=== PATIENT | female | born 1950 | race Caucasian/White ===

== ENCOUNTER 2017-04-21 22:43 | Inpatient (IN) | payer MEDICARE, BC ==
[2017-04-21] MEDS ORDERED: HYDROmorphone 1 MG/ML Syringe IVPUSH ONE (23:09)
[2017-04-21] MEDS ORDERED: LORazepam 2 MG/ML MDV IVPUSH ONE (23:13)
[2017-04-21] MEDS ORDERED: Ondansetron 4 MG/2 ML SDV IVPUSH ONE (23:13)
[2017-04-21] MEDS ORDERED: Sodium Chloride 0.9% 1,000 ML IV SCH (23:15)
--- NOTE | 2017-04-21 23:43 | EDM.PDOC ---
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 She had a meal of hamburgers, beans, salad at 1730 today then about 2 and half hours later had intense abdominal pain that radiates to the shoulders and upper back. denies any recent injuries or surgeries lives in [place], here on weekends for the summer. Onset: Sudden Onset Date: 04/21/17 Onset Time: 20:00 Duration: Hour(s):, Constant, Getting Worse Location: Reports: Abdomen, Back Quality: Reports: Sharp, Stabbing Severity: Severe Improves with: Reports: None Worsens with: Reports: None Associated Symptoms: Reports: Nausea/Vomiting Treatments BOTTOM SPRAYER: Reports: Aspirin (4 baby asa) Right Upper Abdomen Pain Score (Numeric/FACES): 10 - Related Data Allergies Allergy/AdvReac Type Severity Reaction Status Date / Time No Known Allergies Allergy Verified 04/21/17 22:59 Home Meds: Home Meds NK [No Known Home Meds] 04/21/17 [History] Past Medical History Cardiovascular History: Reports: High Cholesterol - Infectious Disease History Infectious Disease History: Reports: Chicken Pox - Past Surgical History Musculoskeletal Surgical History: Reports: Arthroscopic Knee, Arthroscopic Procedure Social & Family History - Tobacco Use Smoking Status *Q: Never Smoker - Recreational Drug Use Recreational Drug Use: No - Living Situation & Occupation Living situation: Reports: Occupation: Retired (lives with who has brain cancer, comes to [place] on weekends for rest from caring for all week.) ED ROS GENERAL - Review of Systems Review Of Systems: See Below Constitutional: Reports: Other (acute distress from abdominal pain) HEENT: Reports: No Symptoms Respiratory: Reports: No Symptoms Cardiovascular: Reports: No Symptoms Endocrine: Reports: No Symptoms GI/Abdominal: Reports: Abdominal Pain, Distension, Nausea, Vomiting : Reports: No Symptoms Musculoskeletal: Reports: Shoulder Pain, Back Pain Skin: Reports: No Symptoms Neurological: Reports: No Symptoms Psychiatric: Reports: Anxiety Hematologic/Lymphatic: Reports: No Symptoms Immunologic: Reports: No Symptoms ED EXAM, GI/ABD - Physical Exam Exam: See Below Exam Limited By: Other (acute pain) General Appearance: Severe Distress, Obese, Active Emesis Eyes: Bilateral: Normal Appearance Ears: Normal External Exam, Normal Canal, Hearing Grossly Normal, Normal TMs Nose: Normal Inspection, Normal Mucosa, No Blood Throat/Mouth: Normal Inspection, Normal Lips, Normal Teeth, Normal Gums, Normal Oropharynx, Normal Voice, No Airway Compromise Head: Atraumatic, Normocephalic Neck: Normal Inspection, Supple, Non-Tender, Full Range of Motion Respiratory/Chest: No Respiratory Distress Cardiovascular: Normal Peripheral Pulses, Regular Rate, Rhythm, No Edema, No Gallop, No JVD, No Murmur, No Rub GI/Abdominal: Hypoactive Bowel Sounds, Tenderness (right upper abdominal pain ) , Distention (Female) Exam: Deferred Rectal (Female) Exam: Deferred Back Exam: Normal Inspection, Muscle Spasm Extremities: Normal Inspection, Normal Range of Motion, Non-Tender, No Pedal Edema, Normal Capillary Refill Neurological: Alert, Oriented, No Motor/Sensory Deficits Psychiatric: Normal Affect, Normal Mood, Anxious Skin Exam: Warm, Dry, Intact, Normal Color, Erythema Lymphatic: No Adenopathy Course - Vital Signs Last Recorded V/S: Last Vital Signs Temp 36.9 C 04/21/17 22:53 Pulse 84 04/21/17 23:46 Resp 14 04/21/17 23:46 BP 156/81 H 04/21/17 23:46 Pulse Ox 98 04/21/17 23:46 - Orders/Labs/Meds Orders: Active Orders 24 hr Category Date Time Status Abdomen Pelvis wo Cont [CT] Stat Exams 04/21/17 23:11 Taken UA W/MICROSCOPIC [URIN] Stat Lab 04/21/17 23:49 Uncollected HYDROmorphone [Dilaudid] Med 04/22/17 00:14 Once 1 mg IVPUSH ONETIME ONE Sodium Chloride 0.9% [Normal Saline] 1,000 ml Med 04/21/17 23:15 Active IV ASDIRECTED Medication Orders Sodium Chloride (Normal Saline) 1,000 mls @ 999 mls/hr IV ASDIRECTED CONNOR Last Admin: 04/21/17 23:30 Dose: 999 mls/hr Labs: Laboratory Tests 04/21/17 04/21/17 Range/Units 23:38 23:38 WBC 9.4 (4.5-11.0) K/uL RBC 5.06 (3.30-5.50) M/uL Hgb 14.6 (12.0-15.0) g/dL Hct 42.2 (36.0-48.0) % MCV 83 (80-98) fL MCH 29 (27-31) pg MCHC 35 (32-36) % Plt Count 241 (150-400) K/uL Neut % (Auto) 76 H (36-66) % Lymph % (Auto) 14 L (24-44) % Delta % (Auto) 7 H (2-6) % Eos % (Auto) 2 (2-4) % Baso % (Auto) 1 (0-1) % Sodium 139 L (140-148) mmol/L Potassium 3.4 L (3.6-5.2) mmol/L Chloride 103 (100-108) mmol/L Carbon Dioxide 22 (21-32) mmol/L Anion Gap 17.4 H (5.0-14.0) mmol/L BUN 10 (7-18) mg/dL Creatinine 0.8 (0.6-1.0) mg/dL Est Cr Clr Drug Dosing 58.93 mL/min Estimated GFR (MDRD) > 60 (>60) Glucose 124 H (74-106) mg/dL Calcium 8.8 (8.5-10.1) mg/dL Magnesium 1.7 L (1.8-2.4) mg/dL Total Bilirubin 0.3 (0.2-1.0) mg/dL AST 25 (15-37) U/L ALT 46 (12-78) U/L Alkaline Phosphatase 92 (46-116) U/L Troponin I < 0.017 (0.000-0.056) ng/mL Total Protein 7.4 (6.4-8.2) g/dL Albumin 3.3 L (3.4-5.0) g/dL Globulin 4.1 H (2.3-3.5) g/dL Albumin/Globulin Ratio 0.8 L (1.2-2.2) Amylase 56 (25-115) U/L Lipase 213 (73-393) U/L Meds: Medications Generic Name Dose Route Start Last Admin Trade Name Freq PRN Reason Stop Dose Admin Sodium Chloride 1,000 mls @ 999 mls/hr 04/21/17 23:15 04/21/17 23:30 Normal Saline IV 999 mls/hr ASDIRECTED CONNOR Administration Discontinued Medications Generic Name Dose Route Start Last Admin Trade Name Bibiana PRN Reason Stop Dose Admin Hydromorphone HCl 1 mg 04/21/17 23:09 04/21/17 23:15 Dilaudid IVPUSH 04/21/17 23:10 1 mg ONETIME ONE Administration Lorazepam 1 mg 04/21/17 23:13 04/21/17 23:31 Ativan IVPUSH 04/21/17 23:14 1 mg ONETIME ONE Administration Ondansetron HCl 4 mg 04/21/17 23:13 04/21/17 23:35 Zofran IVPUSH 04/21/17 23:14 4 mg ONETIME ONE Administration - Re-Assessments/Exams Free Text/Narrative Re-Assessment/Exam: 04/21/17 23:47 given Dilaudid 1 mg IV stat in ER, then order for IV Ativan 1 mg, IV Zofran 4mg , 1 liter of fluids labs; CBC, CMP, TROPONIN, AMYLASE, LIPASE, URINE XRAY; ABD-PELVIS CT SCAN 04/22/17 00:15 CT report show stone in cystic duct; Acute Keli called Dr. Osborn, discussed CT report -advise to either admit for surgery in am or discharge to home with medication and follow up in clinic time 2400: Mrs. Carter request admission. plan: will admit to service of Dr. Osborn, see standing orders for Surgery Admission. Departure - Departure Time of Disposition: 00:19 Disposition: Admitted As Inpatient 65 Condition: Fair Clinical Impression: Cholecystitis - Discharge Information Forms: ED Department Discharge - My Orders Last 24 Hours: My Active Orders 04/21/17 23:11 Abdomen Pelvis wo Cont [CT] Stat 04/21/17 23:15 Sodium Chloride 0.9% [Normal Saline] 1,000 ml IV ASDIRECTED 04/21/17 23:49 UA W/MICROSCOPIC [URIN] Stat 04/22/17 00:14 HYDROmorphone [Dilaudid] 1 mg IVPUSH ONETIME ONE - Assessment/Plan Last 24 Hours: My Active Orders 04/21/17 23:11 Abdomen Pelvis wo Cont [CT] Stat 04/21/17 23:15 Sodium Chloride 0.9% [Normal Saline] 1,000 ml IV ASDIRECTED 04/21/17 23:49 UA W/MICROSCOPIC [URIN] Stat 04/22/17 00:14 HYDROmorphone [Dilaudid] 1 mg IVPUSH ONETIME ONE
[2017-04-22] MEDS ORDERED: HYDROmorphone 1 MG/ML Syringe IVPUSH ONE (00:14)
[2017-04-22] MEDS ORDERED: fentaNYL 100 MCG/2 ML SDV IVPUSH PRN (00:47)
[2017-04-22] MEDS ORDERED: diphenhydrAMINE 50 MG/ML SDV IVPUSH PRN (00:47)
[2017-04-22] MEDS ORDERED: Ondansetron 4 MG/2 ML SDV IVPUSH PRN (00:47)
[2017-04-22] MEDS ORDERED: Morphine 2 MG/ML Syringe IVPUSH PRN (00:47)
[2017-04-22] MEDS ORDERED: Scopolamine 1.5 MG Transdermal Patch TOP ONE (00:47)
[2017-04-22] MEDS ORDERED: Scopolamine 1.5 MG Transdermal Patch TOP PRN (01:00)
[2017-04-22] MEDS ORDERED: Promethazine 12.5 MG in Sodium Chloride 0.9% 50 ML IV PRN (01:02)
[2017-04-22] MEDS ORDERED: diphenhydrAMINE 25 MG Cap PO PRN (01:05)
[2017-04-22] MEDS: Sodium Chloride 0.9% 1,000 ML IV SCH ×4 (01:18→18:26)
[2017-04-22] MEDS ORDERED: Nicotine 14 MG/24 Hr Patch TRDERM PRN (07:26)
[2017-04-22] MEDS: VERIFY SCOP PATCH TOP SCH (08:20)
[2017-04-22] MEDS ORDERED: Nicotine 14 MG/24 Hr Patch TRDERM SCH (09:00)
[2017-04-22] MEDS ORDERED: Ondansetron 4 MG/2 ML SDV ONE (09:25)
[2017-04-22] MEDS ORDERED: Succinylcholine/Normal Saline 200 MG/10 ML Syringe ONE (09:25)
[2017-04-22] MEDS ORDERED: Propofol 200 MG/20 ML SDV ONE (09:25)
[2017-04-22] MEDS ORDERED: fentaNYL 250 MCG/5 ML SDV ONE (09:25)
[2017-04-22] MEDS ORDERED: Neostigmine Methylsulfate 1 MG/ML 5 ML Syringe ONE (09:25)
[2017-04-22] MEDS ORDERED: Dexamethasone 4 MG/ML SDV ONE (09:25)
[2017-04-22] MEDS ORDERED: Rocuronium 50 MG/5 ML Vial ONE (09:25)
[2017-04-22] MEDS ORDERED: Bupivacaine 0.5% 50 ML MDV ONE (09:41)
[2017-04-22] MEDS ORDERED: Lidocaine 1% with EPINEPHrine 1:100,000 50 ML MDV ONE (09:42)
[2017-04-22] MEDS ORDERED: ceFAZolin 2 GM in Premix Bag 1 BAG IV ONE (10:15)
[2017-04-22] MEDS ORDERED: fentaNYL 100 MCG/2 ML SDV ONE (10:58)
[2017-04-22] MEDS ORDERED: Acetaminophen/HYDROcodone 325-5 MG Tab PO PRN (11:07)
[2017-04-22] MEDS ORDERED: Ketorolac 60 MG/2 ML SDV ONE (11:23)
--- NOTE | 2017-04-22 13:53 | CONS ---
DATE OF SERVICE: 04/22/2017 REFERRING PHYSICIAN: CONSULTING PHYSICIAN: Mook Osborn MD REASON FOR CONSULTATION: Evaluation of abdominal pain. HISTORY OF PRESENT ILLNESS: A 66-year-old female, who had an acute attack of right upper quadrant abdominal pain starting yesterday, this was associated with eating greasy and fatty foods. This radiates to the shoulder and back. The patient has had a problem similar to this in the past. Described her pain as 8-9/10. PAST SURGICAL HISTORY: Multiple orthopedic arthroscopic surgery. SOCIAL HISTORY: She does not smoke. REVIEW OF SYSTEMS: GENERAL: The patient is resting fairly comfortable. HEENT: No symptoms. RESPIRATORY: No history of asthma. CARDIOVASCULAR: No history of chest pain. ENDOCRINE: No symptoms. GASTROINTESTINAL: No acholic stools. MUSCULOSKELETAL: Shoulder and back pain as described above. SKIN: No symptoms. PSYCH: No significant symptoms. NEUROLOGICAL: No symptoms. PHYSICAL EXAMINATION: VITAL SIGNS: Temperature 98.3, blood pressure 142/71, pulse 72, respirations 20, 95% on room air. HEENT: Pupils are equal. NECK: Supple. LUNGS: Clear. CARDIOVASCULAR: Regular rhythm and rate. ABDOMEN: Pain with palpation in right upper quadrant. EXTREMITIES: Full range of motion. Strength 5/5. NEUROLOGICAL: Oriented x3. PSYCH: No depression. LABORATORY RESULTS: Show a normal CBC and normal creatinine. IMAGING: I did review the CT scan which shows acute cholecystitis. PLAN: The patient will be taken to the operating room for laparoscopic cholecystectomy. We discussed risks, benefits, alternatives, limitations including, but not limited to infection, bleeding, open surgery. Also discussed common bile duct injury, cystic duct leaks. We also discussed the fact the patient has a large stone in her cystic duct which may complicate this surgery immensely with respect to if this is unable to be removed. The patient understands these risks and wished to proceed. Mook Osborn MD /[id number]
[2017-04-22] MEDS: Ibuprofen 600 MG Tab PO PRN (20:11)
[2017-04-23] MEDS: Ibuprofen 600 MG Tab PO PRN (02:31)
[2017-04-23 07:16] VITALS: BP 131/67
--- NOTE | 2017-04-23 08:32 | OR ---
DATE OF PROCEDURE: 04/22/2017 PROCEDURE: Laparoscopic cholecystectomy. FINDINGS: 1. Significant/severe edema and inflammation associated with the gallbladder. 2. Cholelithiasis. 3. Cholecystitis. COMPLICATIONS: None. CIVIL ENGINEER'S AIDE: None. ANESTHESIA: General/local. PREOPERATIVE DIAGNOSIS: Cholelithiasis and cholecystitis. POSTOPERATIVE DIAGNOSIS: Cholelithiasis and cholecystitis. RISKS: Risks, benefits, alternatives, and limitations, including, but not limited to infection, bleeding, and perforation to abdominal structures along with cystic duct leaks, common bile duct injury, open surgery and other risks were explained to the patient and they wished to proceed. PROCEDURE IN DETAIL: The patient was placed in supine position. A supraumbilical curvilinear incision was made. A Veress needle was used to enter the abdomen without abnormality, and a drop test was performed without abnormality. The abdomen after insufflation was entered with an Optiview trocar. No evidence of injury from the Veress needle or entry was noted. The gallbladder was retracted cephalad. The infundibulum was retracted inferolaterally. Using blunt dissection, the gallbladder freely dissected. The dissection would be described as moderately bloody with large amount of edema and dermatitis tissue compounding the cholecystitis. A "clear view" of the gallbladder was obtained with a single pulsatile structure entering the gallbladder and a single nonpulsatile structure entering the gallbladder. These were subsequently clipped x3 and subsequently transected. The remaining 1/3 of the gallbladder was removed off the gallbladder bed without difficulty. The gallbladder was delivered from the abdomen without difficulty. The gallbladder bed was inspected and minimal bleeding was controlled by electrocautery. The abdomen was thoroughly irrigated with approximately 500 mL of irrigation. No gallbladder spillage was noted. The gallbladder bed was then reinspected for bleeding which was none. The entry point was inspected without abnormality. The air was removed. The wounds were closed with 3-0 Vicryl and 4-0 Vicryl along the Dermabond. After irrigation, local anesthetic was applied. The patient tolerated the procedure well. Mook Osborn MD /[id number]
[2017-04-23] MEDS: VERIFY SCOP PATCH TOP SCH (09:38)
--- NOTE | 2017-05-08 08:41 | DISCH ---
DISCHARGE DIAGNOSIS: Status post laparoscopic cholecystectomy. HOSPITAL COURSE: A pleasant 66-year-old female who underwent an uneventful laparoscopic cholecystectomy. The patient did well postoperatively. Pain was well controlled. She had no nausea, vomiting, shortness of breath, or chest pain. Postoperatively, her white blood cell count, hemoglobin, and total bilirubin were within normal range. FOLLOWUP: Follow up with Surgery in 7 to 10 days. ACTIVITY: No lifting greater than 30 pounds x30 days. DISCHARGE MEDICATIONS: Please see MAR, but includes [place] for pain.
== END 2017-04-23 10:00 | disposition home or self-care (01) | DRG 419 ==
LOC: JP.ED 22:43 → JP.MS 04-22 00:19
PROVIDERS: ADMIT Surgery; ATTEND Surgery
PROC: 0FT44ZZ Resection of Gallbladder, Percutaneous Endoscopic Approach (ICD-10-PCS; principal; 2017-04-22)
DX: K80.00 Calculus of gallbladder with acute cholecystitis without obstruction (principal)
CPT/HCPCS: 36415; 74176; 80053; 82150; 83690; 83735; 84484; 85025; 96361; 96374; 96375; 99285; J1170; J2060; J2405; J7040; 81001; 88304; A9270-GY; J0690; J1100; J1885; J2704; J3010